=== PATIENT | male | born 1990 | race Two or more races ===

== ENCOUNTER 2022-04-24 01:22 | Inpatient (IN) | payer MEDICAID, OTHER ==
[~2022-04-24] VITALS: Ht 165.1 cm; Wt 65.1 kg
--- NOTE | 2022-04-24 01:29 | NUR ---
[id number] C/O L ARM WEAKNESS LWKT 0030. ADMITS TO ETOH . PT A/OX4. CGS 15. TOLERATING R/A WELL WITH NO RESP DISTRESS. CONNECTED PT TO POX AND MONITOR. SAFETY MEASURES IN PLACE.
--- NOTE | 2022-04-24 01:33 | NUR ---
DR. IZA QUINTANILLA AT PT'S BEDSIDE FOR EVAL
--- NOTE | 2022-04-24 01:34 | NUR ---
CODE STROKE ACTIVATED
--- NOTE | 2022-04-24 01:37 | NUR ---
PROVIDED PT WITH URINAL; AWAITING URINE SAMPLE
--- NOTE | 2022-04-24 01:38 | NUR ---
COVID ANTIGEN SWAB COLLECTED AND SEN TO LAB
--- NOTE | 2022-04-24 01:38 | NUR ---
BLOOD COLLECTED AND SENT TO LAB
--- NOTE | 2022-04-24 01:39 | NUR ---
PT TAKEN TO CT VIA JUAN LUIS
[2022-04-24] MEDS ORDERED: IV NS 0.9% 250 ML IV ONE (01:44)
[2022-04-24] MEDS ORDERED: CT SWABBABLE VALVE TRANS SET 1 EA INFUS.SET MC ONE (01:44)
[2022-04-24] MEDS ORDERED: IOHEXOL-350 100 ML VIAL IV ONE (01:44)
[2022-04-24 01:55] LABS: BASOPHILS % (AUTO) 0.5 % (0.0-2.0); EOSINOPHILS % (AUTO) 3.1 % (0.0-6.0); HEMATOCRIT 43 % (39-51); HEMOGLOBIN 14.7 g/dL (13.5-17.5); LYMPHOCYTES # (AUTO) 1.6 K/uL (0.8-4.8); LYMPHOCYTES % (AUTO) 29.5 % (20.0-44.0); MEAN CORPUSCULAR HGB CONC 34 g/dl (31.0-36.0); MEAN CORPUSCULAR VOLUME 100 fL (80-96); MONOCYTES # (AUTO) 0.5 K/uL (0.1-1.30); MONOCYTES % (AUTO) 9.3 % (2.0-12.0); NEUTROPHILS # (AUTO) 3.2 K/uL (1.8-8.9); NEUTROPHILS % (AUTO) 57.6 % (43.0-81.0); PLATELET COUNT (AUTO) 310 K/uL (150-450); RED BLOOD CELL COUNT(AUTO) 4.31 MIL/uL (4.5-6.0); WHITE BLOOD COUNT (AUTO) 5.5 K/uL (4.3-11.0)
--- NOTE | 2022-04-24 01:55 | NUR ---
RETURNED FROM CT
--- NOTE | 2022-04-24 01:59 | NUR ---
DR. COUCH ON PHONE CALL WITH RADIOLOGIST
[2022-04-24 02:12] LABS: ALANINE AMINOTRANSFERASE 50 U/L (12-78); ALBUMIN 3.7 g/dL (3.4-5.0); ALKALINE PHOSPHATASE 95 U/L (46-116); ASPARTATE AMINOTRANSFERASE 44 U/L (15-37); BILIRUBIN,DIRECT 0.1 mg/dL (0.0-0.2); BILIRUBIN,TOTAL 0.2 mg/dL (0.2-1.0); CALCIUM, SERUM 9.2 mg/dL (8.5-10.1); CARBON DIOXIDE 29 mmol/L (21-32); CHLORIDE 102 mmol/L (98-107); GLUCOSE 124 mg/dL (74-106); SODIUM SERUM 144 mmol/L (136-145); TOTAL PROTEIN, SERUM 7.3 g/dL (6.4-8.2); UREA NITROGEN, BLOOD 8 mg/dL (7-18)
--- NOTE | 2022-04-24 02:25 | NUR ---
PT ON VIDEOCALL WITH NEUROLOGIST
--- NOTE | 2022-04-24 02:28 | NUR ---
NEUROLOGIST, DR. DUNAWAY, ON THE PHONE WITH DR. COUCH
--- NOTE | 2022-04-24 02:46 | NUR ---
epic panel paged
[2022-04-24] MEDS ORDERED: POTASSIUM CHLORIDE 20 MEQ TAB.PRT.SR PO ONE ×3 (03:00→03:02)
--- NOTE | 2022-04-24 03:00 | NUR ---
ROOM 314-2 TELE
--- NOTE | 2022-04-24 03:11 | NUR ---
Jose Gonzalez updated that pt will be admitted.
--- NOTE | 2022-04-24 03:30 | NUR ---
REPORT GIVEN TO SCHUYLER BARBA
--- NOTE | 2022-04-24 03:58 | NUR ---
PT TRANSPORTED TO [facility] [place] WITH EMT AND RN AT BEDSIDE. NAD NOTED DURING TRANSPORT.
[2022-04-24 04:00] VITALS: BP 151/91
--- NOTE | 2022-04-24 04:00 | NUR ---
[facility] 32 Y/[facility] [place] M[facility] WITH CC OF LEFT SIDED WEAKNESS. ASSISTED FROM RSALTER PATH TO BED. ABLE TO ANSWER ADMISSION INFO. SEE NIHSS SCALE. PASSED SWALLOW EVAL. PENDING ADM ORDERS. ORIENTED TO ROOM FACILITIES, CALL LIGHT USE INSTRUCTED. PLAN OF CARE AND MEDICATION REGIMEN DISCUSSED, APPEARS TO UNDERSTAND. NO SOB 100% ON RA. SR ON THE MONITOR
[2022-04-24 04:30] VITALS: BP 151/91
--- NOTE | 2022-04-24 05:00 | NUR ---
TELERN GOT UP 3 TIMES, DRINK WATER FROM [employer]. INSTRUCTED. ABLE TO WALK WITH STANDBY ASSIST.
[2022-04-24] MEDS ORDERED: ZOLPIDEM TARTRATE 5 MG TABLET PO PRN (05:30)
[2022-04-24] MEDS ORDERED: ONDANSETRON HCL/PF 4 MG/2 ML VIAL IVP PRN (05:30)
[2022-04-24] MEDS ORDERED: MAG HYDROX/AL HYDROX/SIMETH 30 ML UDC PO PRN (05:30)
[2022-04-24] MEDS ORDERED: Z GUARD REMEDY 4 OZ OINT TP PRN (05:30)
[2022-04-24] MEDS ORDERED: ACETAMINOPHEN 325 MG TABLET PO PRN (05:30)
[2022-04-24] MEDS ORDERED: IV NS 0.9% 1,000 ML IV PRN (05:30)
[2022-04-24] MEDS ORDERED: LORAZEPAM INJ 2 MG/ML VIAL IV PRN ×2 (05:30→10:00)
[2022-04-24] MEDS ORDERED: MAGNESIUM HYDROXIDE 30 ML UDC PO PRN (05:30)
--- NOTE | 2022-04-24 06:40 | NUR ---
TELERN RESTING QUIETLY PRESENT IVF INFUSING WELL. CONTINUED MONITORING
[2022-04-24 07:00] VITALS: BP_SYST 133; BP_SYST 152; BP_DIAS 69; BP_DIAS 75
[2022-04-24 07:11] LABS: BASOPHILS % (AUTO) 0.3 % (0.0-2.0); EOSINOPHILS % (AUTO) 4.8 % (0.0-6.0); HEMATOCRIT 46 % (39-51); HEMOGLOBIN 15.5 g/dL (13.5-17.5); LYMPHOCYTES # (AUTO) 1.9 K/uL (0.8-4.8); LYMPHOCYTES % (AUTO) 40.2 % (20.0-44.0); MEAN CORPUSCULAR HGB CONC 34 g/dl (31.0-36.0); MEAN CORPUSCULAR VOLUME 102 fL (80-96); MONOCYTES # (AUTO) 0.5 K/uL (0.1-1.30); MONOCYTES % (AUTO) 11.1 % (2.0-12.0); NEUTROPHILS % (AUTO) 43.6 % (43.0-81.0); PLATELET COUNT (AUTO) 321 K/uL (150-450); RED BLOOD CELL COUNT(AUTO) 4.48 MIL/uL (4.5-6.0); WHITE BLOOD COUNT (AUTO) 4.7 K/uL (4.3-11.0)
--- NOTE | 2022-04-24 07:25 | NUR ---
CATERER HELPER OPENING NOTE RECEIVED PATIENT AWAKE IN BED, ALERT/ORIENTED X 4, ABLE TO MAKE NEEDS KNOWN. LUCIEN WELL RM AIR SATTING 96 %,NO SIGN SOB/DISTRESS NOTED,BREATHING EVEN AND UNLABORED. N O C/O OF PAIN AND DISCOMFORT , IV ACCESS TO RAC #18 G WITH NS AT 75 ML/HR. SAFETY MEASURES IN PLACE: CALL LIGHT WITHIN REACH, SIDE RAILS UP X 2, BED LOCKED IN LOWEST POSITION. WILL CONTINUE TO MONITOR.
[2022-04-24 07:32] LABS: ALBUMIN 3.8 g/dL (3.4-5.0); BILIRUBIN,TOTAL 0.3 mg/dL (0.2-1.0); CALCIUM, SERUM 9.4 mg/dL (8.5-10.1); CREATININE 0.9 mg/dL (0.6-1.3); MAGNESIUM 2.5 mg/dL (1.8-2.4); PHOSPHORUS 4.2 mg/dL (2.5-4.9); POTASSIUM 3.8 mmol/L (3.5-5.1); TOTAL PROTEIN, SERUM 7.6 g/dL (6.4-8.2)
[2022-04-24 07:43] LABS: THYROID STIMULATING HORMONE 0.81 uIU/mL (0.358-3.74)
[2022-04-24] MEDS ORDERED: CLOPIDOGREL BISULFATE 75 MG TABLET PO SCH (09:00)
[2022-04-24] MEDS ORDERED: FOLIC ACID 1 MG TABLET PO SCH (09:00)
[2022-04-24] MEDS ORDERED: THIAMINE HCL 100 MG TABLET PO SCH (09:00)
[2022-04-24] MEDS ORDERED: ASPIRIN 81 MG TAB.CHEW PO SCH (09:00)
[2022-04-24] MEDS ORDERED: PANTOPRAZOLE 40 MG VIAL IV SCH (09:00)
[2022-04-24] MEDS ORDERED: ENOXAPARIN SODIUM 40 MG/0.4 ML DISP.SYRIN SQ SCH (09:00)
[2022-04-24] MEDS ORDERED: CHLORDIAZEPOXIDE HCL 10 MG CAPSULE PO SCH (10:00)
[2022-04-24] MEDS: CHLORDIAZEPOXIDE HCL 5 MG CAPSULE PO SCH ×2 (11:59→17:29)
[2022-04-24 16:00] VITALS: BP 149/103
[2022-04-24] MEDS ORDERED: GADOTERATE MEGLUMINE 5 MMOL/10 ML VIAL IV ONE (16:06)
--- NOTE | 2022-04-24 18:51 | NUR ---
RN NOTES PATIENT IS INSISTING THAT HE WANTS TO GO HOME TONIGHT , HE SAID ' WHATS THE USE OF STAYING HERE IF EVERYTHING IS NORMAL " , DR SHIPLEY MADE AWARE AND WAITING TO CALL BACK .
--- NOTE | 2022-04-24 18:55 | NUR ---
WHARF HAND CLOSING NOTE PATIENT AWAKE IN BED, ALERT/ORIENTED X 4, ABLE TO MAKE NEEDS KNOWN. TOLERATED WELL ROOM AIR SATTING 98 %,NO SIGN SOB/DISTRESS NOTED,BREATHING EVEN AND UNLABORED. N O C/O OF PAIN AND DISCOMFORT , IV ACCESS TO RAC #18 G WITH NS AT 75 ML/HR. ALL DUE MEDS GIVEN ORDERED , MRI OF THE BRAIN WITH AND W/O WAS DONE AND CONSENT WAS PROVIDED , SEEN PHYSICAL THERAPY AND PATIENT WAS ABLE TO AMBULATE WITH REHAB WITH NO ASSISTANCE , NIHSS DONE AND WITH THE SCORE OF 0 , PATIENT A BLE TO AMBULATE TO THE BATHROOM BY HIMSELF , SAFETY MEASURES IN PLACE: CALL LIGHT WITHIN REACH, SIDE RAILS UP X 2, BED LOCKED IN LOWEST POSITION. ENDORSED TO NEXT SHIFT
--- NOTE | 2022-04-24 19:37 | NUR ---
INSTRUCTIONAL TECHNOLOGY COORDINATORSOLID WASTE COLLECTOR NOTES RECEIVED PATIENT SITTING ON BED, A/O X4. BREATHING EVEN AND NON-LABORED ON ROOM AIR. DENIES LEFT-SIDED NUMBNESS BUT VERBALIZED HE STILL HAS MILD WEAKNESS. ABLE TO MOVE ALL EXTREMITIES AND AMBULATE WITH STEADY GAIT. NO C/O PAIN OR DISCOMFORT. PATIENT INSISTED ON LEAVING AGAINST MEDICAL ADVISED, EXPLAINED RISKS AND BENEFITS OF CONTINUED TREATMENT, STILL REFUSED TO STAY. REMOVED RIGHT AND LEFT ANTECUBITAL IV ACCESS. ALL BELONGINGS ACCOUNTED FOR. ACCOMPANIED TO HOSPITAL LOBBY, LEFT IN STABLE CONDITION. Addendum: 04/24/22 at 1942 by August BARBARA PAYAN HOSPITALIST GILA HAND NP AWARE.
--- NOTE | 2022-04-24 19:56 | NUR ---
INCIDENT REPORT SUBMITTED
[2022-04-24] MEDS ORDERED: SIMVASTATIN 20 MG TABLET PO SCH (22:00)
[2022-04-24 22:10] LABS: EOSINOPHILS % (MANUAL) 4 % (0-4); LYMPHOCYTES % (MANUAL) 35 % (16-48); MONOCYTES % (MANUAL) 13 % (0-11.0); NEUTROPHILS % (MANUAL) 45 (42-76); REACTIVE LYMPHOCYTES 3 % (0-0)
== END 2022-04-24 19:37 | disposition left against medical advice (07) | DRG 47 ==
LOC: ER 01:24 → TELE 03:01
PROVIDERS: ADMIT Internal Medicine; ATTEND Internal Medicine
DX: G45.9 Transient cerebral ischemic attack, unspecified (principal); E87.6 Hypokalemia; F10.129 Alcohol abuse with intoxication, unspecified; F19.10 Other psychoactive substance abuse, uncomplicated; Y90.8 Blood alcohol level of 240 mg/100 ml or more; Z20.822 Contact with and (suspected) exposure to COVID-19; Z53.29 Procedure and treatment not carried out because of patient's decision for other reasons; F17.200 Nicotine dependence, unspecified, uncomplicated
CPT/HCPCS: 36415; 70450-TC; 70496-TC; 70498-TC; 70553-TC; 71045-TC; 80048-TC; 80053-TC; 80061-TC; 80076-TC; 82962-TC; 83735-TC; 84100-TC; 84443-TC; 84484-TC; 85025-TC; 85730-TC; 87081-TC; 97112-TC; 97116-TC; 97530-TC; A9575; C9113; C9803; G0378; G0480; J1650; J7030; J7050; Q9967

== ENCOUNTER 2023-11-18 16:39 | Emergency (ER) | payer MEDICAID, OTHER ==
[~2023-11-18] VITALS: Ht 170.2 cm; Wt 80.7 kg
[2023-11-18] MEDS ORDERED: IV NS 0.9% 1,000 ML BAG IV ONE (18:00)
[2023-11-18] MEDS ORDERED: ONDANSETRON HCL/PF 4 MG/2 ML VIAL IVP ONE (18:00)
[2023-11-18 18:40] VITALS: BP 167/124; TEMP 98.2; O2SAT 100
== END 2023-11-18 18:41 | disposition left against medical advice (07) ==
LOC: ER 16:43
DX: R10.9 Unspecified abdominal pain (principal); Z53.21 Procedure and treatment not carried out due to patient leaving prior to being seen by health care provider